=== PATIENT | male | born 1970 | race African-American/Black ===

== ENCOUNTER 2017-08-21 15:27 | Observation (INO) | payer SELFPAY ==
[~2017-08-21] VITALS: Ht 180.3 cm; Wt 152.4 kg
[~2017-08-21 15:27] MED LIST: ABIL10 PO
[2017-08-21 17:20] LABS: BASOPHILS % 0.2 % (0.0-2.0); EOSINOPHILS % 1.7 % (0.0-5.0); HEMATOCRIT. 33.4 % (42.0-52.0); HEMOGLOBIN. 11.5 g/dL (14.0-18.0); LYMPHOCYTES % 34.2 % (20.0-50.0); MEAN CORPUSCULAR HEMOGLOBIN 34.8 pg (28.0-32.0); MEAN CORPUSCULAR VOLUME 101.3 fL (80.0-94.0); MEAN PLATELET VOLUME 8.8 fl (7.4-10.4); MONOCYTES % 8.8 % (2.0-8.0); NEUTROPHILS % 55.1 % (40.0-76.0); PLATELET 238 x1000/uL (130-400); RED BLOOD CELL COUNT 3.29 mill/uL (4.7-6.1); RED CELL DISTRIBUTION WIDTH 15.3 % (11.6-14.6)
[2017-08-21 17:22] LABS: D-DIMER 1.03 mg/L FEU (<0.50); PROTHROMBIN TIME 10.6 sec (9.4-11.6)
[2017-08-21 17:26] LABS: CHLORIDE 104 mEq/L (98-107)
[2017-08-21] MEDS ORDERED: MORPHINE SULFATE 4 MG/ML CPJ (NOT FOR IM USE) IV ONE (19:45)
[2017-08-21] MEDS ORDERED: IOHEXOL-350 100 ML BOTTLE ONE (21:24)
[2017-08-21 21:45] VITALS: BP 135/82
[2017-08-21] MEDS ORDERED: IPRATROPIUM/ALBUTEROL 0.5-3(2.5)MG/3ML NEB INH PRN (21:45)
[2017-08-21] MEDS ORDERED: ACETAMINOPHEN 325MG TABLET PO PRN (21:45)
[2017-08-21] MEDS ORDERED: LORAZEPAM 0.5MG TABLET PO PRN (21:45)
[2017-08-21] MEDS ORDERED: ONDANSETRON HCL 4MG/2ML INJ IV PRN (21:45)
[2017-08-21] MEDS ORDERED: CLONIDINE 0.1MG TABLET PO PRN (21:45)
[2017-08-21] MEDS ORDERED: DOCUSATE SODIUM 100MG CAPSULE PO PRN (21:45)
[2017-08-21] MEDS ORDERED: ENOXAPARIN 40MG/0.4ML SYR SUBCUT SCH (21:45)
[2017-08-21 22:00] VITALS: BP 135/82
[2017-08-21] MEDS ORDERED: SODIUM CHLORIDE 0.9% 1,000 ML IV SCH (22:00)
[2017-08-21] MEDS ORDERED: DEXTROSE 50% WATER 50ML SYRINGE IV PRN (22:00)
[2017-08-21] MEDS: ENOXAPARIN 40MG/0.4ML SYR SUBCUT SCH (22:19)
[2017-08-22] VITALS: BP 139/86
[2017-08-22 04:00] VITALS: BP 67/132
[2017-08-22 06:04] LABS: BASOPHILS % 0.2 % (0.0-2.0); EOSINOPHILS % 2.4 % (0.0-5.0); HEMATOCRIT. 30.2 % (42.0-52.0); HEMOGLOBIN. 10.3 g/dL (14.0-18.0); LYMPHOCYTES % 37.2 % (20.0-50.0); MEAN CORPUSCULAR HEMOGLOBIN 34.7 pg (28.0-32.0); MEAN CORPUSCULAR VOLUME 101.3 fL (80.0-94.0); MEAN PLATELET VOLUME 8.8 fl (7.4-10.4); MONOCYTES % 8.6 % (2.0-8.0); NEUTROPHILS % 51.6 % (40.0-76.0); PLATELET 217 x1000/uL (130-400); RED BLOOD CELL COUNT 2.98 mill/uL (4.7-6.1); RED CELL DISTRIBUTION WIDTH 15.1 % (11.6-14.6)
[2017-08-22] MEDS: BLOOD SUGAR DIAGNOSTIC STRIP TEST SCH ×3 (06:45→17:00)
[2017-08-22] MEDS: INSULIN LISPRO 100 UNITS/ML SUBCUT SCH ×3 (06:48→17:04)
[2017-08-22 07:52] LABS: CHLORIDE 104 mEq/L (98-107)
[2017-08-22 08:00] VITALS: BP 98/52
[2017-08-22] MEDS: ENOXAPARIN 40MG/0.4ML SYR SUBCUT SCH (09:03)
[2017-08-22] MEDS ORDERED: FAMOTIDINE 20MG TABLET PO NR (09:30)
[2017-08-22] MEDS ORDERED: OMEPRAZOLE 20MG CAPSULE EXTENDED RELEASE PO SCH (10:15)
[2017-08-22] MEDS ORDERED: DOCUSATE SODIUM 250MG CAPSULE PO SCH (10:15)
[2017-08-22 12:00] VITALS: BP 108/54
[2017-08-22 16:00] VITALS: BP 106/52
[2017-08-22 17:13] VITALS: BP 106/52
[2017-08-22] MEDS ORDERED: FAMOTIDINE 20MG TABLET PO SCH (21:00)
== END 2017-08-22 17:45 | disposition home or self-care (01) ==
LOC: ER 15:27 → 5WST 19:12 → INTOOBSV 19:12 → ENRESERV 20:08
PROVIDERS: ADMIT Internal Medicine Geriatric Medicine; ATTEND Internal Medicine Geriatric Medicine
DX: R07.89 Other chest pain (principal); I10 Essential (primary) hypertension; E11.9 Type 2 diabetes mellitus without complications; F17.210 Nicotine dependence, cigarettes, uncomplicated; F20.9 Schizophrenia, unspecified; F10.20 Alcohol dependence, uncomplicated; E66.01 Morbid (severe) obesity due to excess calories; Z91.19 Patient's noncompliance with other medical treatment and regimen; Z86.718 Personal history of other venous thrombosis and embolism; Z79.899 Other long term (current) drug therapy; Z59.0 Homelessness
CPT/HCPCS: 36415; 71045; 71275; 80048; 80053; 82270; 82962; 83880; 84484; 85025; 85379; 85610; 86850; 86900; 86901; 93005; 93970; 96361; 96372; 96374; 99285; G0378; J1650; J1815; J2270; J7030; Q9967

== ENCOUNTER 2025-03-27 09:53 | Emergency (ER) | payer MEDICARE, MEDICAID ==
[~2025-03-27] VITALS: Ht 180.3 cm; Wt 130.0 kg
[~2025-03-27 09:53] MED LIST changes: +APIX5TAB PO; +AZIT500T MT
[2025-03-27 09:54] VITALS: O2SAT 98
[2025-03-27 10:32] VITALS: BP 139/77; PULSE 99; RESP 16; TEMP 36.8; O2SAT 98
== END 2025-03-27 13:15 | disposition left against medical advice (07) ==
LOC: ER 09:53
DX: M54.9 Dorsalgia, unspecified (principal); Z53.21 Procedure and treatment not carried out due to patient leaving prior to being seen by health care provider

== ENCOUNTER 2025-04-10 10:52 | Emergency (ER) | payer MEDICAID, MEDICARE ==
[~2025-04-10] VITALS: Ht 180.3 cm; Wt 132.0 kg
[2025-04-10 11:03] VITALS: O2SAT 99
[2025-04-10 11:12] VITALS: BP 183/95; PULSE 103; RESP 20; TEMP 36.9; O2SAT 97
== END 2025-04-10 14:03 | disposition left against medical advice (07) ==
LOC: ER 10:52
DX: M54.50 Low back pain, unspecified (principal); I10 Essential (primary) hypertension; E11.9 Type 2 diabetes mellitus without complications
CPT/HCPCS: 99281